=== PATIENT | male | born 1995 ===

== ENCOUNTER 2018-04-15 11:12 | Emergency (ER) | payer OTHER ==
[2018-04-15 11:15] VITALS: BMI 29.9
[2018-04-15 11:26] VITALS: TEMP 98
--- NOTE | 2018-04-15 11:27 | ED PDOC ---
Arrival/HPI - General Time Seen by Provider: 04/15/18 11:18 Historian: Patient - History of Present Illness Narrative History of Present Illness (Text): 04/15/18 11:25 22 year old male, with no significant past medical history, presents to the emergency department with bilateral lower back pain, since yesterday. 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 Patient has difficulty walking, and informs that pain is worse with some movements. Patient also informs he has never had this pain in the past. Patient denies any radiation of pain. Patient also denies any abdominal pain, nausea, vomiting, diarrhea, numbness, or any other complaints. Patient denies smoking and drug use, and informs of occasional alcohol use. Time/Duration: 24 hours Associated Symptoms (Text): 04/15/18 11:59 Bilateral low back pain since yesterday after doing heavy lifting at work. No radiation. No numbness. No weakness. No hematuria or genitourinary symptoms. No abdominal pain nausea or vomiting. Past Medical History - Provider Review Nursing Documentation Reviewed: Yes Family/Social History - Physician Review Nursing Documentation Reviewed: Yes Family/Social History: No Known Family HX Smoking Status: Never Smoked Hx Alcohol Use: Yes Frequency of alcohol use: Socially Hx Substance Use: No Allergies/Home Meds Allergies/Adverse Reactions: Allergies No Known Allergies Allergy (Verified 04/15/18 11:26) Review of Systems - Physician Review All systems were reviewed & negative as marked: Yes - Review of Systems Constitutional: Normal Gastrointestinal: Normal. absent: Abdominal Pain, Diarrhea, Nausea, Vomiting Genitourinary Male: Normal Musculoskeletal: Back Pain (Bilateral Lower Back) Skin: Normal Neurological: Normal Physical Exam Vital Signs Reviewed: Yes Temperature: Afebrile Blood Pressure: Normal Pulse: Regular Respiratory Rate: Normal Appearance: Positive for: Well-Appearing, Non-Toxic, Uncomfortable Pain Distress: Mild Mental Status: Positive for: Alert and Oriented X 3 - Systems Exam Head: Present: Atraumatic, Normocephalic Pupils: Present: PERRL Extroacular Muscles: Present: EOMI Conjunctiva: Present: Normal Mouth: Present: Moist Mucous Membranes Neck: Present: Normal Range of Motion Abdomen: No: Tenderness, Distention, Peritoneal Signs, Rebound, Guarding Back: Present: Normal Inspection. No: CVA Tenderness, Midline Tenderness, Paraspinal Tenderness, Pain with Leg Raise, Other (No spinal tenderness; no sciatic notch tenderness) Upper Extremity: Present: Normal Inspection. No: Cyanosis, Edema Lower Extremity: Present: Normal Inspection. No: Edema, Other (Negative straight leg raising) Neurological: Present: GCS=15, CN II-XII Intact, Speech Normal, Motor Func Grossly Intact, Normal Sensory Function, Normal Cerebellar Funct Skin: Present: Warm, Dry, Normal Color. No: Rashes, Other Psychiatric: Present: Alert, Oriented x 3, Normal Insight, Normal Concentration, Other Medical Decision Making ED Course and Treatment: 04/15/18 11:45 Impression: 22 year old male, presents with bilateral lower back pain. Plan: -- Toradol -- Flexeril -- Reassess and disposition Progress Notes: 04/15/18 13:21 No change in the patient's condition. Percocet has been ordered. 04/15/18 14:34 Feeling better after Percocet. Discharged home to follow-up with PMD. A note for work is given. - Medication Orders Current Medication Orders: Cyclobenzaprine HCl (Flexeril) 10 mg PO ONCE HELLEN Ketorolac Tromethamine (Toradol) 30 mg IM Q6 HELLEN - Scribe Statement The provider has reviewed the documentation as recorded by the Scribe Shekhar Colmenares All medical record entries made by the Scribe were at my direction and personally dictated by me. I have reviewed the chart and agree that the record accurately reflects my personal performance of the history, physical exam, medical decision making, and the department course for this patient. I have also personally directed, reviewed, and agree with the discharge instructions and di sposition. Disposition/Present on Arrival - Present on Arrival Any Indicators Present on Arrival: No History of DVT/PE: No History of Uncontrolled Diabetes: No Urinary Catheter: No History of Decub. Ulcer: No - Disposition Have Diagnosis and Disposition been Completed?: Yes Diagnosis: Low back pain Disposition: HOME/ ROUTINE Disposition Time: 14:35 Patient Plan: Discharge Condition: IMPROVED Discharge Instructions (ExitCare): Low Back Pain in Adults Prescriptions: Cyclobenzaprine [Flexeril] 5 mg PO Q8 #15 tab Naproxen [Naprosyn] 500 mg PO BID #14 tab Tramadol HCl [Ultram] 50 mg PO Q6 PRN #14 tab PRN Reason: Pain Forms: WORK NOTE
[2018-04-15] MEDS ORDERED: Oxycodone/Acetaminophen 5/325 mg Tab PO STA (13:21)
[2018-04-15 14:47] VITALS: RESP 18; O2SAT 99
[2018-04-15 14:49] VITALS: BP 112/71; PULSE 74
== END 2018-04-15 14:48 | disposition home or self-care (01) ==
LOC: ED 11:12
DX: M54.5 Low back pain (principal)
CPT/HCPCS: 96372; 99283; J1885